=== PATIENT | female | born 1965 | race Two or more races ===

== ENCOUNTER 2025-07-07 19:29 | Emergency (ER) | payer OTHER ==
[~2025-07-07] VITALS: Ht 160 cm; Wt 74.4 kg
[2025-07-07] MEDS ORDERED: IPRATROPIUM BROMIDE 0.5 MG/2.5 ML AMPUL.NEB IH SCH ×2 (20:30→22:15)
[2025-07-07] MEDS ORDERED: HYDROCODONE/CHLORPHEN P-STIREX 5 ML ML PO ONE (20:45)
[2025-07-07] MEDS ORDERED: METHYLPREDNISOLONE SOD SUCC 125 MG VIAL IV ONE (20:45)
[2025-07-07 22:18] LABS: COVID-19 AG NEGATIVE (NEGATIVE)
[2025-07-07 22:32] LABS: BUN CREA RATIO 18.0 (7.0-25.0); CREATININE SERUM 0.88 mg/dL (0.55-1.02); GFR 65.54; GLUCOSE FASTING 131.0 mg/dL (65-100); OSMOLALITY SERUM 290.0 MOSM/KG (275-295)
[2025-07-07] MEDS ORDERED: ATROVENT HFA12.9 GM IH (23:30)
[2025-07-07] MEDS ORDERED: PREDNISOLO15 MG/5 ML PO (23:30)
[2025-07-07] MEDS ORDERED: TUSNEL DM LIQU473 ML PO (23:30)
[2025-07-07] MEDS ORDERED: ZITHROMAX500 MG PO (23:30)
== END 2025-07-08 07:12 | disposition home or self-care (01) ==
LOC: ER 19:30
PROVIDERS: Behavior Technician
DX: J44.1 Chronic obstructive pulmonary disease with (acute) exacerbation (principal); Z87.891 Personal history of nicotine dependence; J45.998 Other asthma; Z20.822 Contact with and (suspected) exposure to COVID-19